=== PATIENT | male | born 1965 | race Caucasian/White ===

== ENCOUNTER 2016-06-02 05:51 | Day surgery (SDC) | payer BC ==
[~2016-06-02 05:51] MED LIST: ACCUNEB INH; ADVAIR250 INH; AMB10 PO; AMIT25 PO; ASAB PO; CARDCD180 PO; CARDCD240 PO; CARDCD360 PO; FLOMAX4 PO; HYGROTON 25 MG25 MG OR; HYGROTON 25 MG25 MG PO; LAN125 PO; LISINOPRIL40 MG PO; NAP500 PO; NEUR300 PO; NORCO1 TAB PO; OXAPROZIN600 MG PO; P5 PO; PLAQ200B PO; PRIN20 PO; PROAIR HFA INH; RYTHMOL225 MG PO; XARELTO20 MG PO; Z300 PO; ZANAFLEX 4 MG TA4 MG PO
[2016-07-04] MEDS ORDERED: BIOFREEZE T (09:12)
[2016-07-18] MEDS ORDERED: Z300 PO (22:10)
[2016-07-18] MEDS ORDERED: NORCO1 TAB PO (22:10)
[2016-07-18] MEDS ORDERED: HYGROTON 25 MG25 MG PO (22:10)
[2016-07-18] MEDS ORDERED: LISINOPRIL40 MG PO (22:10)
[2016-07-18] MEDS ORDERED: TAZTIA X3 PO (22:10)
[2016-07-18] MEDS ORDERED: AMIT25 PO (22:11)
[2016-07-18] MEDS ORDERED: PLAQ200B PO (22:11)
[2016-07-18] MEDS ORDERED: P5 PO (22:11)
[2016-07-18] MEDS ORDERED: NEUR300 PO (22:12)
[2016-07-18] MEDS ORDERED: XARELTO20 MG PO (22:12)
[2016-07-18] MEDS ORDERED: PROAIR HFA INH (22:12)
[2016-07-18] MEDS ORDERED: LAN125 PO (22:12)
[2016-07-18] MEDS ORDERED: NAP500 PO (22:12)
[2016-07-18] MEDS ORDERED: ADVAIR250 INH (22:12)
[2016-07-18] MEDS ORDERED: *UNABLE2 (22:13)
== END 2016-06-02 09:15 | disposition home or self-care (01) ==
LOC: SDC 05:51
PROVIDERS: Orthopaedic Surgery
PROC: 3E0S3BZ Introduction of Anesthetic Agent into Epidural Space, Percutaneous Approach (ICD-10-PCS; 2016-06-02)
PROC: 3E0S33Z Introduction of Anti-inflammatory into Epidural Space, Percutaneous Approach (ICD-10-PCS; principal; 2016-06-02 07:30)
DX: M54.16 Radiculopathy, lumbar region (principal); M54.5 Low back pain; F41.9 Anxiety disorder, unspecified; F32.9 Major depressive disorder, single episode, unspecified; L30.9 Dermatitis, unspecified; N40.0 Benign prostatic hyperplasia without lower urinary tract symptoms; M19.90 Unspecified osteoarthritis, unspecified site; M79.7 Fibromyalgia; M10.9 Gout, unspecified; J45.909 Unspecified asthma, uncomplicated; J44.9 Chronic obstructive pulmonary disease, unspecified; G47.33 Obstructive sleep apnea (adult) (pediatric); I10 Essential (primary) hypertension; I49.9 Cardiac arrhythmia, unspecified; I48.91 Unspecified atrial fibrillation; Z98.890 Other specified postprocedural states; Z87.442 Personal history of urinary calculi; Z79.1 Long term (current) use of non-steroidal anti-inflammatories (NSAID); Z79.51 Long term (current) use of inhaled steroids; Z79.891 Long term (current) use of opiate analgesic; Z79.52 Long term (current) use of systemic steroids; Z79.82 Long term (current) use of aspirin; Z79.899 Other long term (current) drug therapy
CPT/HCPCS: J1040; J2250; J3010; Q9967

== ENCOUNTER 2016-07-06 05:06 | Day surgery (SDC) | payer BC ==
[~2016-07-06 05:06] MED LIST changes: +BIOFREEZE T
[2016-07-18] MEDS ORDERED: Z300 PO (22:10)
[2016-07-18] MEDS ORDERED: LISINOPRIL40 MG PO (22:10)
[2016-07-18] MEDS ORDERED: TAZTIA X3 PO (22:10)
[2016-07-18] MEDS ORDERED: HYGROTON 25 MG25 MG PO (22:10)
[2016-07-18] MEDS ORDERED: NORCO1 TAB PO (22:10)
[2016-07-18] MEDS ORDERED: P5 PO (22:11)
[2016-07-18] MEDS ORDERED: AMIT25 PO (22:11)
[2016-07-18] MEDS ORDERED: PLAQ200B PO (22:11)
[2016-07-18] MEDS ORDERED: LAN125 PO (22:12)
[2016-07-18] MEDS ORDERED: NEUR300 PO (22:12)
[2016-07-18] MEDS ORDERED: NAP500 PO (22:12)
[2016-07-18] MEDS ORDERED: ADVAIR250 INH (22:12)
[2016-07-18] MEDS ORDERED: XARELTO20 MG PO (22:12)
[2016-07-18] MEDS ORDERED: PROAIR HFA INH (22:12)
[2016-07-18] MEDS ORDERED: *UNABLE2 (22:13)
== END 2016-07-06 08:58 | disposition home or self-care (01) ==
LOC: SDC 05:06
PROVIDERS: Orthopaedic Surgery
PROC: 3E0R3BZ Introduction of Anesthetic Agent into Spinal Canal, Percutaneous Approach (ICD-10-PCS; 2016-07-06)
PROC: B01BYZZ Fluoroscopy of Spinal Cord using Other Contrast (ICD-10-PCS; 2016-07-06)
PROC: 3E0R33Z Introduction of Anti-inflammatory into Spinal Canal, Percutaneous Approach (ICD-10-PCS; principal; 2016-07-06 07:30)
DX: M54.16 Radiculopathy, lumbar region (principal); F41.9 Anxiety disorder, unspecified; F32.9 Major depressive disorder, single episode, unspecified; J45.909 Unspecified asthma, uncomplicated; I10 Essential (primary) hypertension; Z98.890 Other specified postprocedural states
CPT/HCPCS: J1040; J2250; J3010; Q9967